=== PATIENT | female | born 1945 | race Two or more races ===

== ENCOUNTER 2022-08-01 10:13 | Inpatient (IN) | payer SELFPAY ==
[~2022-08-01] VITALS: Ht 152.4 cm; Wt 65.8 kg
--- NOTE | 2022-08-01 10:30 | NUR ---
TO ER BED 3, BIBFAMILY C/O RECTAL BLEEDING X2WKS, HX OF INTESTINAL CANCER, AAOX3, BREATHING EVEN AND NON LABORED, AMBULATORY, BREATHING EVEN AND NON LABORED, AWAITING MD ORDERS
--- NOTE | 2022-08-01 11:00 | NUR ---
FECAL OCCULT TEST PERFORMED, TEST IS POSITIVE, DR HIGGINBOTHAM AWARE.
[2022-08-01 11:28] LABS: BASOPHILS % (AUTO) 0.2 % (0.0-2.0); EOSINOPHILS % (AUTO) 0.8 % (0.0-6.0); HEMATOCRIT 39 % (33-45); LYMPHOCYTES # (AUTO) 1.8 K/uL (0.8-4.8); LYMPHOCYTES % (AUTO) 52.3 % (20.0-44.0); MEAN CORPUSCULAR HGB CONC 34 g/dl (31.0-36.0); MEAN CORPUSCULAR VOLUME 91 fL (82-100); MONOCYTES # (AUTO) 0.2 K/uL (0.1-1.30); MONOCYTES % (AUTO) 6.7 % (2.0-12.0); NEUTROPHILS # (AUTO) 1.4 K/uL (1.8-8.9); PLATELET COUNT (AUTO) 270 K/uL (150-450); RED BLOOD CELL COUNT(AUTO) 4.27 MIL/uL (4.0-5.2); WHITE BLOOD COUNT (AUTO) 3.5 K/uL (4.3-11.0)
--- NOTE | 2022-08-01 11:35 | NUR ---
COVID SWAB DONE AND SENT TO LAB
[2022-08-01 11:40] LABS: CALCIUM, SERUM 8.8 mg/dL (8.5-10.1); CREATININE 0.7 mg/dL (0.6-1.3); POTASSIUM 3.9 mmol/L (3.5-5.1)
[2022-08-01 11:46] LABS: ALBUMIN 3.7 g/dL (3.4-5.0); BILIRUBIN,DIRECT 0.1 mg/dL (0.0-0.2); BILIRUBIN,TOTAL 0.4 mg/dL (0.2-1.0); TOTAL PROTEIN, SERUM 7.8 g/dL (6.4-8.2)
[2022-08-01] MEDS: AMLODIPINE BESYLATE 5 MG TABLET PO SCH (13:30)
[2022-08-01] MEDS ORDERED: Z GUARD REMEDY 4 OZ OINT TP PRN (13:30)
[2022-08-01] MEDS ORDERED: hydrALAZINE HCL IV 20 MG VIAL IV PRN (13:30)
[2022-08-01] MEDS ORDERED: MAG HYDROX/AL HYDROX/SIMETH 30 ML UDC PO PRN (13:30)
[2022-08-01] MEDS ORDERED: ONDANSETRON HCL/PF 4 MG/2 ML VIAL IVP PRN (13:30)
[2022-08-01] MEDS ORDERED: MAGNESIUM HYDROXIDE 30 ML UDC PO PRN (13:30)
[2022-08-01] MEDS ORDERED: ACETAMINOPHEN 325 MG TABLET PO PRN (13:30)
--- NOTE | 2022-08-01 13:55 | NUR ---
REPORT GIVEN TO NATALIIA REDMAN FOR MISTY
--- NOTE | 2022-08-01 14:10 | NUR ---
TRANSFERRED TO BED 309 IN STABLE CONDITION
--- NOTE | 2022-08-01 14:15 | NUR ---
MS RN ADMITTING NOTES PATIENT ADMITTED TO UNIT VIA GURNEY AND TRANSFERRED TO BED WITHOUT INCIDENT. FAMILY AT BEDSIDE. PATIENT A/O X 4, ICELANDIC SPEAKING, ABLE TO MAKE NEEDS KNOWN, TOLERATING WELL ON ROOM AIR WITH NO S/S RESPIRATORY DISTRESS. NO COMPLAINTS OF PAIN OR DISCOMFORT, R AC # 20 G SL CLEAN, INTACT,AND FLUSHING WELL. SAFETY MEASURES IN PLACE: BED IN LOWEST LOCKED POSITION, SIDE RAILS UP X 2, CALL LIGHT WITHIN REACH. PATIENT CURRENTLY ON CLEAR LIQUID DIET PENDING POSSIBLE COLONOSCOPY, NO MD ORDER YET PLACED FOR PROCEDURE, MESSAGE LEFT FOR DR ABEL. WILL CONTINUE TO MONITOR.
[2022-08-01] MEDS: IV NS 0.9% 1,000 ML IV SCH (14:39)
--- NOTE | 2022-08-01 17:34 | NUR ---
MS RN NOTES PNEUMOCOCCAL AND INFLUENZA VACCINES ADMINISTERED PER PATIENT REQUEST. INFORMED CONSENT PROVIDED. PNEUMOCOCCAL LOT # [id number], INFLUENZA LOT # [id number]
[2022-08-01] MEDS ORDERED: PNEUMOCOCCAL 23-VAL P-SAC VAC 0.5 ML VIAL SQ ONE (18:00)
[2022-08-01] MEDS ORDERED: INFLUENZA VACCINE 2022-23 0.5 ML DISP.SYRIN IM ONE (18:00)
--- NOTE | 2022-08-01 19:13 | NUR ---
MS RN CLOSING NOTES PATIENT LAYING IN BED, A/O X 4, ABLE TO MAKE NEEDS KNOWN, TOLERATING WELL ON ROOM AIR WITH NO S/S RESPIRATORY DISTRESS. NO COMPLAINTS OF PAIN OR DISCOMFORT R AC # [address] WITH NS INFUSING @ 75 ML/HR. SAFETY MEASURES IN PLACE: BED IN LOWEST LOCKED POSITION, SIDE RAILS UP X 2, CALL LIGHT WITHIN REACH. PATIENT CURRENTLY ON CLEAR LIQUID DIET PENDING POSSIBLE COLONOSCOPY. ALL NEEDS MET. WILL ENDORSE TO SCIENCE FACULTY MEMBER FOR MISTY.
--- NOTE | 2022-08-01 19:25 | NUR ---
RN OPENING NOTE PATIENT IN BED, AWAKE. PATIENT HAS FAMILY AT BEDSIDE. PATIENT IS A/O X 3, ABLE TO MAKE NEEDS KNOWN. UNDERSTANDS BASIC SUDANESE, PRIMARILY LUXEMBOURGER SPEAKER. PATIENT IS ON RA, TOLERATING WELL, NO SOB NOTED, BREATHING EVEN AND UNLABORED. PATIENT DOES NOT REPORT ANY PAIN AT THIS TIME. RAC 20 G PATENT AND INTACT WITH NS ONGOING AT 75 ML/HR. PATIENT NOT IN ANY APPARENT DISTRESS. SAFETY MEASURES IN PLACE: BED LOCKED AND IN LOWEST POSITION, CALL LIGHT WITHIN REACH, SIDE RAILS UP. WILL MONITOR PATIENT CLOSELY.
[2022-08-01 20:00] VITALS: BP 120/59
[2022-08-02] MEDS: IV NS 0.9% 1,000 ML IV SCH ×2 (02:36→15:12)
[2022-08-02 07:04] LABS: BASOPHILS % (AUTO) 0.3 % (0.0-2.0); EOSINOPHILS % (AUTO) 0.9 % (0.0-6.0); HEMATOCRIT 36 % (33-45); HEMOGLOBIN 12.4 g/dL (11.5-14.8); LYMPHOCYTES % (AUTO) 47.1 % (20.0-44.0); MEAN CORPUSCULAR HGB CONC 34 g/dl (31.0-36.0); MEAN CORPUSCULAR VOLUME 92 fL (82-100); MONOCYTES # (AUTO) 0.3 K/uL (0.1-1.30); MONOCYTES % (AUTO) 6.2 % (2.0-12.0); NEUTROPHILS # (AUTO) 1.9 K/uL (1.8-8.9); NEUTROPHILS % (AUTO) 45.5 % (43.0-81.0); PLATELET COUNT (AUTO) 267 K/uL (150-450); RED BLOOD CELL COUNT(AUTO) 3.97 MIL/uL (4.0-5.2); WHITE BLOOD COUNT (AUTO) 4.2 K/uL (4.3-11.0)
[2022-08-02 07:11] LABS: CALCIUM, SERUM 8.5 mg/dL (8.5-10.1); CREATININE 0.8 mg/dL (0.6-1.3); PHOSPHORUS 3.8 mg/dL (2.5-4.9); POTASSIUM 3.7 mmol/L (3.5-5.1)
--- NOTE | 2022-08-02 07:13 | NUR ---
RN CLOSING NOTE PATIENT IN BED, EYES CLOSED, EASILY AWAKENED. PATIENT IS A/O X 3, ABLE TO MAKE NEEDS KNOWN. UNDERSTANDS BASIC [place]ERBAIJANI, PRIMARILY SWAZI SPEAKER. PATIENT IS ON RA, TOLERATING WELL, NO SOB NOTED, BREATHING EVEN AND UNLABORED. PATIENT DOES NOT REPORT ANY PAIN AT THIS TIME. RAC 20 G PATENT AND INTACT WITH NS ONGOING AT 75 ML/HR. PATIENT NOT IN ANY APPARENT DISTRESS. SAFETY MEASURES IN PLACE: BED LOCKED AND IN LOWEST POSITION, CALL LIGHT WITHIN REACH, SIDE RAILS UP. ALL NEEDS MET AND ATTENDED. ALL ORDERS CARRIED OUT. WILL ENDORSE TO DAY SHIFT NURSE FOR MISTY.
[2022-08-02 08:00] VITALS: BP 135/75
[2022-08-02] MEDS: AMLODIPINE BESYLATE 5 MG TABLET PO SCH (08:18)
--- NOTE | 2022-08-02 19:30 | NUR ---
RECEIVED PATIENT IN BED, ALERT/ORIENTED X4, ROOM AIR, DENIES PAIN AT THIS TIME, NO DISTRESS, NS AT 75 ML/HR, BEDREST, CONTINENT OF BOWEL AND BLADDER, FAMILY AT THE BEDSIDE, KEPT SAFE, WILL CONTINUE TO MONITOR.
[2022-08-02 19:58] VITALS: BP 141/67
[2022-08-02 20:00] VITALS: BP 141/67
[2022-08-03] MEDS: IV NS 0.9% 1,000 ML IV SCH ×2 (04:49→19:51)
--- NOTE | 2022-08-03 06:25 | NUR ---
GI BLEED, ALERT/ORIENTED X4, ROOM AIR, NO ABDOMINAL PAIN DURING SHIFT, TOLERATING CLEAR LIQUID DIET, AMBULATORY, CONTINENT OF BOWEL AND BLADDER. CONTINUE IVF, MONITOR H/H, GI CONSULT, MONITOR BP.
--- NOTE | 2022-08-03 07:20 | NUR ---
RN OPENING NOTE RECEIVED PATIENT AWAKE IN BED. PATIENT IS A/O X 3, ABLE TO MAKE NEEDS KNOWN. UNDERSTANDS BASIC [place], PRIMARILY ROMANSH SPEAKER. PATIENT IS ON RA, TOLERATING WELL, NO SOB NOTED, BREATHING EVEN AND UNLABORED. AMBULATORY.RAC 20 OZIEL PATENT AND INTACT WITH ONGOING NS AT 75 ML/HR. PATIENT NOT IN ANY APPARENT DISTRESS. ALL SAFETY MEASURES IN PLACE: BED LOCKED AND IN LOWEST POSITION, CALL LIGHT AND TABLE WITHIN REACH, SIDE RAILS UP. WILL CONTINUE TO MONITOR.
[2022-08-03 08:00] VITALS: BP 129/70
[2022-08-03] MEDS: AMLODIPINE BESYLATE 5 MG TABLET PO SCH (08:49)
[2022-08-03] MEDS ORDERED: PEG 3350/NA SULF,BICARB,CL/KCL 4,000 ML BOTTLE PO ONE (12:00)
[2022-08-03 16:00] VITALS: BP 129/70
--- NOTE | 2022-08-03 19:36 | NUR ---
RN CLOSING NOTE PATIENT AWAKE IN BED. PATIENT IS A/O X 3, ABLE TO MAKE NEEDS KNOWN. UNDERSTANDS BASIC TRISTANIAN, PRIMARILY TRISTANIAN SPEAKER. PATIENT IS ON RA, TOLERATING WELL, NO SOB NOTED, BREATHING EVEN AND UNLABORED. AMBULATORY.RAC 20 OZIEL PATENT AND INTACT WITH ONGOING NS AT 75 ML/HR. PATIENT NOT IN ANY APPARENT DISTRESS. ALL DUE MEDS GIVEN ORDERED.ALL SAFETY MEASURES IN PLACE: BED LOCKED AND IN LOWEST POSITION, CALL LIGHT AND TABLE WITHIN REACH, SIDE RAILS UP. PATIENT WILL HAVE COLONOSCOPY TOMORROW. ALL CONSENTS SIGNED IN THE CHART.WILL ENDORSE FOR MISTY..
--- NOTE | 2022-08-03 19:56 | NUR ---
RN OPENING NOTES RECEIVED PT LAYING IN BED, AWAKE. AOx4, SWEDISH AND SALVADOREAN SPEAKER. ON RA AND TOLERATING WELL. NO SOB NOTED. NO S/SX OF RESPIRATORY DISTRESS NOTED. IV ACCESS IN RAC #20G RUNNING NS @ 75 ML/HR. SAFETY PRECAUTIONS IN PLACE: BED IN LOWEST, LOCKED POSITION, SIDERAILS UPx2, AND BRAKES ON. TABLE AND CALL LIGHT WITHIN REACH. ALL NEEDS MET AT THIS TIME.
[2022-08-03 20:00] VITALS: BP 119/61
[2022-08-04 05:55] LABS: BASOPHILS % (AUTO) 0.4 % (0.0-2.0); EOSINOPHILS % (AUTO) 1.9 % (0.0-6.0); HEMATOCRIT 35 % (33-45); HEMOGLOBIN 12.1 g/dL (11.5-14.8); LYMPHOCYTES # (AUTO) 1.5 K/uL (0.8-4.8); LYMPHOCYTES % (AUTO) 43.8 % (20.0-44.0); MEAN CORPUSCULAR HGB CONC 34 g/dl (31.0-36.0); MEAN CORPUSCULAR VOLUME 91 fL (82-100); MONOCYTES # (AUTO) 0.3 K/uL (0.1-1.30); MONOCYTES % (AUTO) 7.4 % (2.0-12.0); NEUTROPHILS # (AUTO) 1.6 K/uL (1.8-8.9); NEUTROPHILS % (AUTO) 46.5 % (43.0-81.0); PLATELET COUNT (AUTO) 252 K/uL (150-450); RED BLOOD CELL COUNT(AUTO) 3.91 MIL/uL (4.0-5.2); WHITE BLOOD COUNT (AUTO) 3.5 K/uL (4.3-11.0)
[2022-08-04 06:08] LABS: CALCIUM, SERUM 8.4 mg/dL (8.5-10.1); CARBON DIOXIDE 29 mmol/L (21-32); CHLORIDE 107 mmol/L (98-107); CREATININE 0.8 mg/dL (0.6-1.3); GLUCOSE 95 mg/dL (74-106); POTASSIUM 3.4 mmol/L (3.5-5.1); SODIUM SERUM 142 mmol/L (136-145); UREA NITROGEN, BLOOD 6 mg/dL (7-18)
--- NOTE | 2022-08-04 06:34 | NUR ---
RN CLOSING NOTES PT LYING IN BED, AWAKE. AOx4, MALDIVIAN AND CHADIAN SPEAKER. ON RA AND TOLERATING WELL. NO SOB NOTED. NO S/SX OF RESPIRATORY DISTRESS NOTED. IV ACCESS IN RAC #20G RUNNING NS @ 75 ML/HR. ALL ORDERS CARRIED OUT. ALL NEEDS MET. PT KEPT CLEAN AND DRY. SAFETY PRECAUTIONS IN PLACE: BED IN LOWEST, LOCKED POSITION, SIDERAILS UPx2, AND BRAKES ON. TABLE AND CALL LIGHT WITHIN REACH. WILL ENDORSE TO ONCOMING SHIFT FOR MISTY.
--- NOTE | 2022-08-04 07:30 | NUR ---
RN Receiving Report. PT AOx4, able to express her own concerns. Patient states no issues, reports last bowel movement was around 6am, clear, yellow. Agrees with scheduled procedure/Colonoscopy. Patient made aware of plan of care and agrees. All safety precautions taken, call light and table within reach, bed at lowest position. Will continue to monitor throughout shift.
[2022-08-04 08:00] VITALS: BP 139/74
[2022-08-04] MEDS: IV NS 0.9% 1,000 ML IV SCH (08:23)
[2022-08-04] MEDS: AMLODIPINE BESYLATE 5 MG TABLET PO SCH (08:24)
[2022-08-04] MEDS: POTASSIUM CL. PREMIX PERIPHER. 50 ML IV SCH ×2 (10:43→11:10)
[2022-08-04 16:00] VITALS: BP 119/67
--- NOTE | 2022-08-04 18:07 | NUR ---
RN Closing Report. PT AOx4 able to express her own concerns, Patient has been waiting for scheduled procedure/Colonoscopy, NPO all day with fluids as scheduled. Patient states ready for procedure, able to express her own concerns, remained safe throughout shift. Son and at bedside all day providing emotional support. All safety precautions taken call light and table within reach and bed at lowest position. Pending pickup for scheduled procedure...Will continue to monitor
[2022-08-04] MEDS ORDERED: ANESTHESIA TRAY IN PYXIS 1 EA TRAY MC ONE (18:36)
--- NOTE | 2022-08-04 19:39 | NUR ---
RN NOTES PT NOT IN ROOM. TAKEN TO OR FOR COLONOSCOPY.
--- NOTE | 2022-08-04 20:17 | NUR ---
RN OPENING NOTES PT ARRIVED FROM OR @ 2017. AOx4, ABLE TO MAKE NEEDS KNOWN. NO COMPLAINTS OF PAIN AT THIS TIME. ON RA AND TOLERATING WELL. NO SOB NOTED. NO S/SX OF RESPIRATORY DISTRESS NOTED. IV ACCESS IN RAC #20G AND R WRIST #20G RUNNING NS @75 ML/HR. REGULAR DIET ORDER PER DOCTOR COLTEN. SAFETY PRECAUTIONS IN PLACE: BED IN LOWEST, LOCKED POSITION, SIDERAILS UPx2, AND BRAKES ON. TABLE AND CALL LIGHT WITHIN REACH. ALL NEEDS MET AT THIS TIME.
[2022-08-04 20:55] VITALS: BP 137/77
[2022-08-05] MEDS: IV NS 0.9% 1,000 ML IV SCH ×2 (00:13→10:52)
[2022-08-05 05:55] LABS: BASOPHILS % (AUTO) 0.7 % (0.0-2.0); EOSINOPHILS % (AUTO) 1.4 % (0.0-6.0); HEMATOCRIT 38 % (33-45); HEMOGLOBIN 12.8 g/dL (11.5-14.8); LYMPHOCYTES # (AUTO) 1.5 K/uL (0.8-4.8); LYMPHOCYTES % (AUTO) 43.6 % (20.0-44.0); MEAN CORPUSCULAR HGB CONC 34 g/dl (31.0-36.0); MEAN CORPUSCULAR VOLUME 91 fL (82-100); MONOCYTES # (AUTO) 0.3 K/uL (0.1-1.30); MONOCYTES % (AUTO) 7.5 % (2.0-12.0); NEUTROPHILS # (AUTO) 1.6 K/uL (1.8-8.9); NEUTROPHILS % (AUTO) 46.8 % (43.0-81.0); PLATELET COUNT (AUTO) 259 K/uL (150-450); RED BLOOD CELL COUNT(AUTO) 4.14 MIL/uL (4.0-5.2); WHITE BLOOD COUNT (AUTO) 3.5 K/uL (4.3-11.0)
[2022-08-05 06:21] LABS: CALCIUM, SERUM 8.6 mg/dL (8.5-10.1); CARBON DIOXIDE 28 mmol/L (21-32); CHLORIDE 105 mmol/L (98-107); CREATININE 0.7 mg/dL (0.6-1.3); GLUCOSE 103 mg/dL (74-106); MAGNESIUM 1.8 mg/dL (1.8-2.4); PHOSPHORUS 4.4 mg/dL (2.5-4.9); POTASSIUM 3.7 mmol/L (3.5-5.1); SODIUM SERUM 139 mmol/L (136-145); UREA NITROGEN, BLOOD 7 mg/dL (7-18)
--- NOTE | 2022-08-05 06:45 | NUR ---
RN CLOSING NOTES PT LAYING IN BED, AWAKE. AOx4, ABLE TO MAKE NEEDS KNOWN. ON RA AND TOLERATING WELL. NO SOB NOTED. NO S/SX OF RESPIRATORY DISTRESS NOTED. IV ACCESS IN RAC #20G AND R WRIST #20G RUNNING NS @75 ML/HR. ALL ORDERS CARRIED OUT. ALL NEEDS MET. PT KEPT CLEAN AND DRY. NO COMPLAINTS OF PAIN THROUGHOUT SHIFT. SAFETY PRECAUTIONS IN PLACE: BED IN LOWEST, LOCKED POSITION, SIDERAILS UPx2, AND BRAKES ON. TABLE AND CALL LIGHT WITHIN REACH. WILL ENDORSE TO ONCOMING SHIFT FOR MISTY.
--- NOTE | 2022-08-05 07:30 | NUR ---
RN Receiving Report Patient AO x4 able to express her concerns. States she is feeling well and rested with no discomfort. IV fluids running as ordered with no signs of infiltration. Abdominal is soft, non distended, pt passing flatus. Will continue to monitor throughout shift. Call light and table within reach, bed at lowest position. All safety precautions in place.
[2022-08-05 08:00] VITALS: BP 138/71
[2022-08-05 08:56] VITALS: BP 138/71
[2022-08-05] MEDS: AMLODIPINE BESYLATE 5 MG TABLET PO SCH (08:56)
[2022-08-05] MEDS ORDERED: AMLO-212 PO (11:48)
--- NOTE | 2022-08-05 12:50 | NUR ---
tank processor Note Patient ready for discharge per physician. Discharge completed on computer. Educated patient and family at bedside on signs and symptoms of bleed and precautions needed. Patient is stable, IV lines removed, IV intact and patent, dressing applied. Family members were active in patient care and state they will be helping at home. Family will make arrangements to follow up with a primary care and a specialist depending on who accepts patients insurance plan. visual specialist dropped off community resources, provided to family and answered questions. All safety precautions taken, patient wheeled to main entrance for discharge safely.
== END 2022-08-05 12:55 | disposition home or self-care (01) | DRG 394 ==
LOC: ER 10:20 → TRANSITION 13:07 → MED 13:44
PROVIDERS: ADMIT Internal Medicine; ATTEND Nurse Practitioner Acute Care
PROC: 0DBK8ZZ Excision of Ascending Colon, Via Natural or Artificial Opening Endoscopic (ICD-10-PCS; principal; 2022-08-04)
PROC: 0DBQ8ZX Excision of Anus, Via Natural or Artificial Opening Endoscopic, Diagnostic (ICD-10-PCS; 2022-08-04)
DX: K62.89 Other specified diseases of anus and rectum (principal); D62 Acute posthemorrhagic anemia; K63.5 Polyp of colon; Z85.038 Personal history of other malignant neoplasm of large intestine; Z20.822 Contact with and (suspected) exposure to COVID-19; I10 Essential (primary) hypertension; D72.819 Decreased white blood cell count, unspecified; E87.6 Hypokalemia; E66.9 Obesity, unspecified; Z68.29 Body mass index [BMI] 29.0-29.9, adult; K05.00 Acute gingivitis, plaque induced; Z85.048 Personal history of other malignant neoplasm of rectum, rectosigmoid junction, and anus
CPT/HCPCS: 36415; 71045-TC; 80048-TC; 80076-TC; 83690-TC; 83735-TC; 84100-TC; 85025-TC; 85730-TC; 86850-TC; 87081-TC; 88305-TC; 90732; C9803; G0378; J0360; J2704; J3480; J3490; J7030; Q2036